=== PATIENT | female | born 1960 | race Caucasian/White ===

== ENCOUNTER 2019-10-23 05:47 | Emergency (ER) | payer BC ==
--- NOTE | 2019-10-23 06:08 | ERPHSYRPT ---
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 Triage Nursing Assessment: pt ambulated to rm 4, at bedsdie. Pt alert and oriented x3 pleasant, cooperative. Pt c/o chest pain since 1330 yesterday afternoon, she took 2 aspirins then and 2 tylenol. Didn't get much relief. Went to bed last night and was able to sleep but the pain woke her up again. Chest pain is in center of chest, radiating to left arm and to back. Lungs clear, heart tones reg. Abd soft with active bs x4 quad, nontender. Physician History: Pt notes that she has chest pain that started yesterday around 13:00 after her friends dog and another dog got in a fight and she took a stick and tried to beat him to get him to stop fighting. Pt notes that her chest started hurting during that and then has persistently hurt since. Pt notes that she has also been nauseated and a bit light headed. Pt notes that the pain goes thru to her back and then also hurts when she moves. Timing/Duration: yesterday Activities at Onset: activity, emotional stress Quality: pressure Location: substernal, back Chest Pain Radiation: back Severity of Pain-Max: moderate Severity of Pain-Current: severe Modifying Factors: Improves With: movement Associated Symptoms: nausea, shortness of breath, hurts to breathe, dizziness, back pain Prior Chest Pain/Cardiac Workup: no prior chest pain Aspirin Treatment Today: no aspirin today Allergies/Adverse Reactions: No Known Drug Allergies Allergy (Unverified 10/23/19 06:04) Home Medications: Atorvastatin Calcium [Lipitor] 20 mg PO HS 10/23/19 [History] Fexofenadine/Pseudoephedrine [Trish-D 24 Hour Tablet] 1 tab PO DAILY 10/23/19 [History] Hydroxyzine HCl 25 mg [Atarax 25 mg] 25 mg PO DAILY PRN PRN 10/23/19 [ History] Levothyroxine Sodium 150 Mcg [Synthroid 150 Mcg] 125 mg PO DAILY 10/23/19 [ History] Trazodone HCl 100 mg PO HS PRN PRN 10/23/19 [History] Hx Tetanus, Diphtheria Vaccination/Date Given: Yes Hx Influenza Vaccination/Date Given: No Hx Pneumococcal Vaccination/Date Given: No Immunizations Up to Date: Yes - Review of Systems Constitutional: No Symptoms Eyes: No Symptoms Ears, Nose, & Throat: No Symptoms Respiratory: Dyspnea Cardiac: Chest Pain, No Edema, No Palpitations, No Syncope Abdominal/Gastrointestinal: Nausea, Vomiting, No Abdominal Pain Genitourinary Symptoms: No Symptoms Musculoskeletal: Back Pain, No No Symptoms Skin: No Symptoms, Skin Lesions Neurological: No Symptoms, Dizziness Psychological: No Symptoms Endocrine: No Symptoms All Other Systems: Reviewed and Negative - Past Medical History Neurological History: Migraines ENT History: No Pertinent History Cardiac History: High Cholesterol, Hypertension Respiratory History: No Pertinent History Endocrine Medical History: Hypothyroidism Musculoskeletal History: Arthritis, Rheumatoid Arthritis GI Medical History: No Pertinent History History: No Pertinent History Psycho-Social History: Anxiety Female Reproductive Disorders: No Pertinent History - Past Surgical History Past Surgical History: Yes Neuro Surgical History: No Pertinent History Cardiac: No Pertinent History Respiratory: No Pertinent History Gastrointestinal: No Pertinent History Genitourinary: No Pertinent History Musculoskeletal: No Pertinent History Female Surgical History: Section - Social History Smoking Status: Never smoker Exposure to second hand smoke: No Drug Use: none Patient Lives Alone: No - Female History Hx Now: No - Nursing Vital Signs Nursing Vital Signs: Initial Vital Signs Temperature 97.7 F 10/23/19 05:50 Pulse Rate 79 10/23/19 05:50 Respiratory Rate 15 10/23/19 05:50 Blood Pressure 136/89 10/23/19 05:50 O2 Sat by Pulse Oximetry 96 10/23/19 05:50 Pain Scale Pain Intensity 10 - Physical Exam General Appearance: mild distress Eye Exam: PERRL/EOMI Neck Exam: normal inspection, supple Respiratory Exam: normal breath sounds, chest tenderness, lungs clear, airway intact, No diminished breath sounds Cardiovascular Exam: regular rate/rhythm, normal heart sounds, normal peripheral pulses, No murmur, No friction rub, No gallop, No tachycardia, No irregular Gastrointestinal/Abdomen Exam: soft, normal bowel sounds, No tenderness, No distention Pelvic Exam: not done Rectal Exam: not done Back Exam: normal inspection Extremity Exam: normal inspection, normal range of motion, No tenderness Neurologic Exam: alert, oriented x 3, cooperative, 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, normal mood/affect, nml cerebellar function, nml station & gait, sensation nml, No motor deficits, No sensory deficit, No agitation, No uncooperative, No motor weakness Skin Exam: normal color, warm, dry, No rash SpO2 Interpretation: normal SpO2: 96 O2 Delivery: Room Air - Course EKG Interpreted by Me: Sinus Rhythm (79), NORMAL AXIS, Non-specific ST Changes Ordered Tests: Active Orders 24 hr Category Date Time Status 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 Care 10/23/19 06:17 Active EKG-ER Only STAT Care 10/23/19 06:15 Active CHEST 2 VIEWS (PA AND LAT) Stat Exams 10/23/19 06:17 Taken CBC W DIFF Stat Lab 10/23/19 06:15 Completed CK-Creatinine Phosphokinase Stat Lab 10/23/19 06:00 Completed CMP Stat Lab 10/23/19 06:00 Completed D-DIMER QUANTITATION Stat Lab 10/23/19 06:00 Completed NT PRO BNP Stat Lab 10/23/19 06:00 Completed TROPONIN Q3H Lab 10/23/19 06:00 Completed TROPONIN Q3H Lab 10/23/19 09:30 Ordered TROPONIN Q3H Lab 10/23/19 12:30 Ordered TROPONIN Q3H Lab 10/23/19 15:30 Ordered TROPONIN Q3H Lab 10/23/19 18:30 Ordered Medication Summary Generic Name Dose Route Start Last Admin Trade Name Freq PRN Reason Stop Dose Admin Nitroglycerin 0.4 mg 10/23/19 06:51 10/23/19 06:54 Nitrostat 0.4 Mg Tablet SL 11/22/19 06:50 0.4 mg PRN PRN Administration CHEST PAIN Discontinued Medications Generic Name Dose Route Start Last Admin Trade Name Freq PRN Reason Stop Dose Admin Aspirin 324 mg 10/23/19 06:15 10/23/19 06:35 Baby Aspirin 81 Mg Chew PO 10/23/19 06:16 324 mg STAT ONE Administration Furosemide 40 mg 10/23/19 06:50 10/23/19 06:55 Lasix 40 Mg/4 Ml IV 10/23/19 06:51 40 mg STAT ONE Administration Furosemide Confirm 10/23/19 06:55 Lasix 40 Mg/4 Ml Administered 10/23/19 06:56 Dose 40 mg .ROUTE .STK-MED ONE Nitroglycerin 0.4 mg 10/23/19 06:15 10/23/19 06:35 Nitrostat 0.4 Mg (Ed) SL 10/23/19 06:16 0.4 mg STAT ONE Administration Nitroglycerin Confirm 10/23/19 07:02 Nitrostat 0.4 Mg (Ed) Administered 10/23/19 07:03 Dose 0.4 mg SL .STK-MED ONE Ondansetron HCl 4 mg 10/23/19 06:52 10/23/19 06:56 Zofran 4 Mg/2 Ml Vial IV 10/23/19 06:53 4 mg STAT ONE Administration Ondansetron HCl Confirm 10/23/19 06:55 Zofran 4 Mg/2 Ml Vial Administered 10/23/19 06:56 Dose 4 mg .ROUTE .STK-MED ONE Lab/Rad Data: Laboratory Result Diagrams 10/23/19 06:15 10/23/19 06:00 Laboratory Results 10/23/19 10/23/19 10/23/19 Range/Units 06:15 06:00 06:00 WBC 7.9 (4.0-10.5) K/mm3 RBC 4.85 (4.1-5.4) M/mm3 Hgb 13.6 (12.0-16.0) gm/dl Hct 41.8 (35-47) % MCV 86.2 (78-100) fl MCH 28.0 (26-32) pg MCHC 32.5 (32-36) g/dl RDW 14.3 H (11.5-14.0) % Plt Count 230 (150-450) K/mm3 MPV 11.4 H (6-9.5) fl Gran % 64.0 (36.0-66.0) % Eos # (Auto) 0.01 (0-0.5) Absolute Lymphs (auto) 2.14 (1.0-4.6) Absolute Monos (auto) 0.70 (0.0-1.3) Lymphocytes % 27.0 (24.0-44.0) % Monocytes % 8.8 (0.0-12.0) % Eosinophils % 0.1 (0.00-5.0) % Basophils % 0.1 (0.0-0.4) % Absolute Granulocytes 5.06 (1.4-6.9) Basophils # 0.01 (0-0.4) D-Dimer < 207 L (215-500) ng/mL Sodium (137-145) mmol/L Potassium (3.5-5.1) mmol/L Chloride (98-107) mmol/L Carbon Dioxide (22-30) mmol/L Anion Gap (5-15) MEQ/L BUN (7-17) mg/dL Creatinine (0.52-1.04) mg/dL Estimated GFR ML/MIN Glucose (74-106) mg/dL Calcium (8.4-10.2) mg/dL Total Bilirubin (0.2-1.3) mg/dL AST (14-36) U/L ALT (0-35) U/L Alkaline Phosphatase (38-126) U/L Creatine Kinase (30-135) U/L Troponin I 0.680 H* (0.000-0.034) ng/mL NT-Pro-B Natriuret Pep (0-900) pg/mL Serum Total Protein (6.3-8.2) g/dL Albumin (3.5-5.0) g/dL 10/23/19 Range/Units 06:00 WBC (4.0-10.5) K/mm3 RBC (4.1-5.4) M/mm3 Hgb (12.0-16.0) gm/dl Hct (35-47) % MCV (78-100) fl MCH (26-32) pg MCHC (32-36) g/dl RDW (11.5-14.0) % Plt Count (150-450) K/mm3 MPV (6-9.5) fl Gran % (36.0-66.0) % Eos # (Auto) (0-0.5) Absolute Lymphs (auto) (1.0-4.6) Absolute Monos (auto) (0.0-1.3) Lymphocytes % (24.0-44.0) % Monocytes % (0.0-12.0) % Eosinophils % (0.00-5.0) % Basophils % (0.0-0.4) % Absolute Granulocytes (1.4-6.9) Basophils # (0-0.4) D-Dimer (215-500) ng/mL Sodium 143 (137-145) mmol/L Potassium 3.8 (3.5-5.1) mmol/L Chloride 110 H (98-107) mmol/L Carbon Dioxide 24 (22-30) mmol/L Anion Gap 13.1 (5-15) MEQ/L BUN 8 (7-17) mg/dL Creatinine 0.57 (0.52-1.04) mg/dL Estimated GFR > 60.0 ML/MIN Glucose 112 H (74-106) mg/dL Calcium 9.5 (8.4-10.2) mg/dL Total Bilirubin 0.60 (0.2-1.3) mg/dL AST 46 H (14-36) U/L ALT 23 (0-35) U/L Alkaline Phosphatase 79 (38-126) U/L Creatine Kinase 67 (30-135) U/L Troponin I (0.000-0.034) ng/mL NT-Pro-B Natriuret Pep 2320 H (0-900) pg/mL Serum Total Protein 7.6 (6.3-8.2) g/dL Albumin 4.3 (3.5-5.0) g/dL - Progress Progress: unchanged Air Movement: fair Progress Note: 10/23/19 06:53 Pt with elevated troponin at 0.680 and EKG with non-specific ST-[facility] changes. - Departure Departure Disposition: Transfer ([facility]) Clinical Impression: Chest pain due to myocardial ischemia Condition: Stable Critical Care Time: No Referrals: MILAN SYKES [Primary Care Provider] - Instructions: Chest Pain (DC) Plan of Treatment: Pt results presented to Dr. Jesus Garcia at [facility] who accepts pt with elevated troponin and ST depression in the lateral leads and AVL. Pt transferred for Cardiology consult availability and care. All labs reviewed and EKG as will as CXR- which showed no acute infiltrates.
[2019-10-23] MEDS ORDERED: Nitrostat 0.4 MG (ED) SL ONE ×2 (06:15→07:02)
[2019-10-23] MEDS ORDERED: BABY ASPIRIN 81 MG CHEW PO ONE (06:15)
[2019-10-23 06:27] LABS: Absolute Neutrophil Ct (ANC) 5.06 (1.4-6.9); BASOPHIL % 0.1 % (0.0-0.4); Basophil (Absolute #) 0.01 (0-0.4); Eosinophil % 0.1 % (0.00-5.0); Eosinophil (Absolute #) 0.01 (0-0.5); Hematocrit 41.8 % (35-47); Hemoglobin 13.6 gm/dl (12.0-16.0); Lymphocyte (Absolute #) 2.14 (1.0-4.6); Mean Cell Volume 86.2 fl (78-100); Mean Corpuscular Hgb Concent. 32.5 g/dl (32-36); Mean Platelet Volume 11.4 fl (6-9.5); Monocytes % 8.8 % (0.0-12.0); Platelet Count 230 K/mm3 (150-450); Red Blood Count 4.85 M/mm3 (4.1-5.4); Red Cell Distribution Width 14.3 % (11.5-14.0); White Blood Count 7.9 K/mm3 (4.0-10.5)
[2019-10-23 06:39] LABS: ALBUMIN 4.3 g/dL (3.5-5.0); ALKALINE PHOSPHATASE 79 U/L (38-126); ANION GAP 13.1 MEQ/L (5-15); BLOOD UREA NITROGEN 8 mg/dL (7-17); CHLORIDE 110 mmol/L (98-107); CK-Creatinine Phosphokinase 67 U/L (30-135); Calcium 9.5 mg/dL (8.4-10.2); Carbon Dioxide 24 mmol/L (22-30); Creatinine 1 0.57 mg/dL (0.52-1.04); Glucose 112 mg/dL (74-106); NT PRO BNP 2320 pg/mL (0-900); Potassium 3.8 mmol/L (3.5-5.1); SGOT/AST 46 U/L (14-36); SGPT/ALT 23 U/L (0-35); SODIUM 143 mmol/L (137-145); Total Protein 7.6 g/dL (6.3-8.2)
[2019-10-23] MEDS ORDERED: Lasix 40 MG/4 ML IV ONE (06:50)
[2019-10-23] MEDS ORDERED: Nitrostat 0.4 MG Tablet SL PRN (06:51)
[2019-10-23] MEDS ORDERED: Zofran 4 MG/2 ML VIAL IV ONE (06:52)
[2019-10-23] MEDS ORDERED: Lasix 40 MG/4 ML ONE (06:55)
[2019-10-23] MEDS ORDERED: Zofran 4 MG/2 ML VIAL ONE (06:55)
[2019-10-23 07:16] VITALS: BP 109/76; PULSE 86
[2019-10-23 07:25] VITALS: O2SAT 96
--- NOTE | 2019-10-23 09:26 | XRAY ---
Indication: Chest pain. Comparison: None PA/lateral chest demonstrates minimal left base fibrosis/scarring. Remaining heart and lungs unremarkable. Bony thorax intact with mild degenerative changes. Impression: Nonacute chest with chronic features.
== END 2019-10-23 07:41 | disposition short-term general hospital (02) ==
LOC: ED 05:47
DX: I25.9 Chronic ischemic heart disease, unspecified (principal); R07.9 Chest pain, unspecified; R07.89 Other chest pain; R42 Dizziness and giddiness; R11.0 Nausea; R06.02 Shortness of breath; Z79.899 Other long term (current) drug therapy
CPT/HCPCS: 36415; 71046; 80053; 82550; 83880; 85025; 85379; 93005; 93041; 96374; 96375; 99285; J1940; J2405; A9270-GY